=== PATIENT | female | born 1950 | race Caucasian/White ===

== ENCOUNTER 2021-01-16 10:25 | Day surgery (SDC) | payer MEDICARE, MEDICAID ==
[2021-01-09 16:15] LABS: BASOPHILS # (AUTO) 0.1 X10'3 (0-0.2); BASOPHILS % (AUTO) 0.7 % (0-1); EOSINOPHILS # (AUTO) 0.1 X10'3 (0-0.9); EOSINOPHILS % (AUTO) 1.4 % (0-6); LYMPHOCYTES # (AUTO) 2.1 X10'3 (1.1-4.8); LYMPHOCYTES % (AUTO) 21.3 % (21-51); MEAN CORPUSCULAR HEMOGLOBIN 29.7 PG (27.0-31.0); MEAN CORPUSCULAR HGB CONC 32.9 g/dL (33.0-36.5); MEAN CORPUSCULAR VOLUME 90.2 FL (78-98); MEAN PLATELET VOLUME 10.3 FL (7.4-10.4); MONOCYTES # (AUTO) 0.8 X10'3 (0-0.9); MONOCYTES % (AUTO) 8.7 % (2-12); NEUTROPHILS # (AUTO) 6.6 X10'3 (1.8-7.7); NEUTROPHILS % (AUTO) 67.9 % (42-75); PRE OP HEMATOCRIT 43.8 % (35.0-45.0); PRE OP HEMOGLOBIN 14.4 g/dL (12.0-16.0); PRE OP PLATELET COUNT 231 X10'3 (140-440); RED BLOOD COUNT 4.86 X10'6 (4.20-5.60); RED CELL DISTRIBUTION WIDTH 15.3 % (11.5-14.5)
[2021-01-09 16:21] LABS: ALBUMIN/GLOBULIN RATIO 1.2 (1.1-1.5); ALKALINE PHOSPHATASE 93 IU/L (46-116); BLOOD UREA NITROGEN 18 MG/DL (7-18); CALCIUM 8.6 MG/DL (8.5-10.1); CHLORIDE 106 MMOL/L (99-107); CREATININE 0.82 MG/DL (0.40-0.90); PRE OP ALT 19 U/L (30-65); PRE OP ANION GAP 10 (8-16); PRE OP AST 22 U/L (10-37); PRE OP BILIRUB, TOTAL 0.3 MG/DL (0.0-1.0); PRE OP GLUCOSE 86 MG/DL (70-104); PRE OP POTASSIUM 3.4 MMOL/L (3.4-5.1); PRE OP SODIUM 142 MMOL/L (135-145); TOTAL CARBON DIOXIDE 26.2 MMOL/L (24-32); TOTAL PROTEIN 7.4 G/DL (6.4-8.2); eGFR 69 ML/MIN
[~2021-01-16] VITALS: Ht 162.6 cm; Wt 67.1 kg
[~2021-01-16 10:25] MED LIST: BUPIVAcaine/PF 2.5 mg/ml (0.25%) 30ml vial ONE; OMEP-50 PO; albuterol 2.5 MG/3 ML nebule NEB ONE; cefazolin/dext.iso 2gm/100ml 100 ML IV ONE; famotidine 20mg tablet PO ONE; ringers solution, lacted 1,000 ML IV SCH
[2021-01-16] MEDS ORDERED: LIDOcaine 0.5% (5mg/ml) 50ml vial ONE ×2 (10:35→12:00)
[2021-01-16 10:40] VITALS: BP 140/64
[2021-01-16] MEDS ORDERED: acetaminophen 1,000mg/100ml IV 100 ML IV PRN (10:40)
[2021-01-16] MEDS ORDERED: meperidine/PF 25mg/ml syringe IV PRN ×3 (10:40)
[2021-01-16] MEDS ORDERED: morphine 2 MG/ML inj. syringe IV PRN (10:40)
[2021-01-16] MEDS ORDERED: hydrALAZINE 20mg/ml inj. IV PRN (10:40)
[2021-01-16] MEDS ORDERED: labetalol 20mg/4ml (5mg/ml) syringe IV PRN (10:40)
[2021-01-16] MEDS ORDERED: ondansetron/PF 4mg/2ml inj IV PRN (10:40)
[2021-01-16] MEDS ORDERED: proCHLORperazine 10 MG/2 ml inj IV PRN (10:40)
[2021-01-16] MEDS ORDERED: ringers solution, lacted 1,000 ML IV SCH (10:40)
[2021-01-16] MEDS ORDERED: morphine 4 MG/ML inj SYRINge IV PRN (10:40)
[2021-01-16] MEDS ORDERED: midazolam 1 mg/ML 2ml injection ONE (11:59)
[2021-01-16] MEDS ORDERED: fentaNYL/PF 50MCG/1 ML 2ML syringe ONE (11:59)
[2021-01-16] MEDS ORDERED: propofol inj 20 ML IV ONE (12:35)
[2021-01-16 12:40] VITALS: BP 130/71
--- NOTE | 2021-01-16 12:40 | NUR ---
Received from OR via , accompanied by Anesthesiologist DR MCCALL and report given by Anesthesiolgist. AWAKE AND STEPHANY PAIN. VITALS STABLE. DRESSING DI. FINGERS WARM AND PINK.
[2021-01-16 12:50] VITALS: BP 137/69
[2021-01-16 13:00] VITALS: BP 144/67
[2021-01-16 13:10] VITALS: BP 138/70
--- NOTE | 2021-01-16 13:30 | NUR ---
AWAKE AND ORIENTED. VITALS STABLE. DRESSING DI. STEPHANY PAIN. HOME WITH HER BROTHER AT THIS TIME.
== END 2021-01-16 13:30 | disposition home or self-care (01) ==
LOC: PAS 10:25
PROVIDERS: ATTEND Orthopaedic Surgery Hand Surgery
DX: G56.02 Carpal tunnel syndrome, left upper limb (principal); F17.210 Nicotine dependence, cigarettes, uncomplicated; K21.9 Gastro-esophageal reflux disease without esophagitis; M19.072 Primary osteoarthritis, left ankle and foot; M19.071 Primary osteoarthritis, right ankle and foot; Z79.899 Other long term (current) drug therapy; Z20.822 Contact with and (suspected) exposure to COVID-19; Z98.51 Tubal ligation status; Z96.642 Presence of left artificial hip joint; Z98.890 Other specified postprocedural states; Z98.41 Cataract extraction status, right eye; Z98.42 Cataract extraction status, left eye; Z95.1 Presence of aortocoronary bypass graft
CPT/HCPCS: 29848; 36415; 80053; 82948; 85025; 93005; J2001; J2250; J2704; J3010; J3490; U0003; A4215; A7000; J7120

== ENCOUNTER 2022-10-01 08:18 | Emergency (ER) | payer MEDICARE, MEDICAID ==
[~2022-10-01] VITALS: Ht 162.6 cm; Wt 70.9 kg
[~2022-10-01 08:18] MED LIST changes: -BUPIVAcaine/PF 2.5 mg/ml (0.25%) 30ml vial ONE; -OMEP-50 PO; +OMEP20CA16 PO; -albuterol 2.5 MG/3 ML nebule NEB ONE; -cefazolin/dext.iso 2gm/100ml 100 ML IV ONE; -famotidine 20mg tablet PO ONE; -ringers solution, lacted 1,000 ML IV SCH
[2022-10-01 08:29] VITALS: BP 163/53
[2022-10-01] MEDS ORDERED: ORPH100T2 PO (10:37)
== END 2022-10-01 10:51 | disposition home or self-care (01) ==
LOC: ER 08:18
DX: S29.019A Strain of muscle and tendon of unspecified wall of thorax, initial encounter (principal); M62.830 Muscle spasm of back; X58.XXXA Exposure to other specified factors, initial encounter; Y93.89 Activity, other specified; Y92.89 Other specified places as the place of occurrence of the external cause; Y99.8 Other external cause status
CPT/HCPCS: 99283

== ENCOUNTER 2024-07-06 10:31 | Inpatient (IN) | payer MEDICARE, MEDICAID ==
[~2024-07-06] VITALS: Ht 162.6 cm; Wt 71.8 kg
[2024-07-06] VITALS (7 sets, daily range): BP systolic 113–129; BP diastolic 62–66; PULSE 90–110; RESP 20–30; TEMP 97.6–97.8; O2SAT 94–97
[~2024-07-06 10:31] MED LIST changes: +ORPH100T4 PO
[2024-07-06] MEDS: magnesium sulf-water 2g/50mL 50 ML IV ONE (10:58)
[2024-07-06] MEDS: normal saline 1000ML IV soln IVB ONE ×3 (10:58→12:11)
[2024-07-06] MEDS: diltiazem 5mg/ml 5ml inj. IV ONE (10:58)
[2024-07-06 11:12] LABS: BASOPHILS # (AUTO) 0.1 X10'3 (0-0.2); BASOPHILS % (AUTO) 0.2 % (0-1); EOSINOPHILS # (AUTO) 0.1 X10'3 (0-0.9); EOSINOPHILS % (AUTO) 0.5 % (0-6); HEMATOCRIT 40.1 % (35.0-45.0); HEMOGLOBIN 13.1 g/dl (12.0-16.0); LYMPHOCYTES # (AUTO) 0.2 X10'3 (1.1-4.8); LYMPHOCYTES % (AUTO) 0.7 % (21-51); MEAN CORPUSCULAR HEMOGLOBIN 30.1 PG (27.0-31.0); MEAN CORPUSCULAR HGB CONC 32.7 g/dL (33.0-36.5); MEAN CORPUSCULAR VOLUME 91.9 FL (78-98); MEAN PLATELET VOLUME 10.4 FL (7.4-10.4); MONOCYTES # (AUTO) 0.2 X10'3 (0-0.9); MONOCYTES % (AUTO) 0.9 % (2-12); NEUTROPHILS # (AUTO) 24.8 X10'3 (1.8-7.7); NEUTROPHILS % (AUTO) 97.7 % (42-75); PLATELET COUNT 180 X10'3 (140-440); RED BLOOD COUNT 4.37 X10'6 (4.20-5.60); RED CELL DISTRIBUTION WIDTH 13.6 % (11.5-14.5)
[2024-07-06 11:14] LABS: WHITE BLOOD COUNT 25.4 X10'3 (4.5-11.0)
[2024-07-06 11:36] LABS: ALBUMIN 2.1 G/DL (3.4-5.0); ANION GAP 16 (8-16); CALCIUM 8.7 MG/DL (8.5-10.1); CHLORIDE 98 MMOL/L (99-107); CREATININE 1.52 MG/DL (0.40-0.90); GLUCOSE 107 MG/DL (70-104); MAGNESIUM 1.9 MG/DL (1.5-2.4); POTASSIUM 3.5 MMOL/L (3.5-5.1); PRO BRAIN NATRIURETIC PEPTIDE 6444 PG/ML (0-125); SODIUM 136 MMOL/L (135-145); TOTAL CARBON DIOXIDE 22.2 MMOL/L (24-32); eCRCL 29 ML/MIN; eGFR 34 ML/MIN
[2024-07-06 11:38] LABS: BLOOD UREA NITROGEN 38 MG/DL (7-18)
[2024-07-06 11:42] LABS: PLATELET ESTIMATE NORMAL; TOTAL CELLS COUNTED 100
[2024-07-06] MEDS: diltiazem-NS 100mg/100ml 100 ML IV SCH ×2 (12:10→13:40)
[2024-07-06] MEDS: CefTRIAXone 2gm/D5W 50ml BAG 50 ML IV ONE (12:50)
[2024-07-06] MEDS ORDERED: potassium Cl 20 mEq SR tablet PO PRN (13:00)
[2024-07-06] MEDS ORDERED: magnesium sulf-water 4G/100mL 100 ML IV PRN (13:00)
[2024-07-06] MEDS ORDERED: ondansetron/PF 4mg/2ml inj IV PRN (13:00)
[2024-07-06] MEDS ORDERED: magnesium sulf-water 2g/50mL 50 ML IV PRN (13:00)
[2024-07-06] MEDS ORDERED: HYDROcodone/acetaminophen 5mg/325mg tablet PO PRN (13:00)
[2024-07-06] MEDS ORDERED: magnesium Cl slow-release 64mg tablet PO PRN (13:00)
[2024-07-06] MEDS ORDERED: morphine 2 MG/ML inj. syringe IV PRN (13:00)
[2024-07-06] MEDS ORDERED: acetaminophen 325mg tablet PO PRN ×2 (13:00)
[2024-07-06] MEDS ORDERED: potassium Cl 40MEQ/1/2NS 520ml 520 ML IV PRN (13:00)
[2024-07-06] MEDS: azithromycin/NS 500mg/250ml 250 ML IV STA (13:39)
[2024-07-06] MEDS: normal saline 1000ml 1,000 ML IV SCH (13:41)
[2024-07-06 16:04] LABS: ABG BASE EXCESS -6.4 mmol/L (-2.0-3.0); ABG HCO3 17.2 mmol/L (21.0-28.0); ABG OXYGEN SATURATION 94.6 % (94.0-98.0); ABG PCO2 (T) 29.6 mmHg (32.0-45.0); ABG PO2 (T) 78.4 mmHg (83.0-108.0); ALLEN'S TEST POSITIVE; FCOHb 0.3 % (0.5-1.5); FHHb 5.4 % (0.0-5.0); FLOW 4 L/min; FMetHb 0.2 % (0.0-1.5); FO2Hb 94.1 % (94.0-98.0); MODE NASAL CANNULA; PATIENT TEMPERATURE 36.8; TOTAL HEMOGLOBIN 16.5 G/dl (12.0-16.0)
[2024-07-06] MEDS: COMMUNICATION ORDER 1 EA MISC MC ONE (17:29)
[2024-07-06] MEDS: methylPREDNISolone sod succ 125mg/2ml vial IV SCH (18:05)
[2024-07-06] MEDS: heparin, porcine 5000 units/ml vial SQ SCH (19:40)
[2024-07-06] MEDS: albuterol 2.5 MG/3 ML nebule NEB SCH (19:59)
[2024-07-07] VITALS (23 sets, daily range): BP systolic 113–145; BP diastolic 63–80; PULSE 84–116; RESP 15–30; TEMP 97.2–98.7; O2SAT 95–100
[2024-07-07] MEDS ORDERED: LISI5TAB22 PO (01:21)
[2024-07-07] MEDS ORDERED: ROSU5TAB43 PO (01:21)
[2024-07-07] MEDS ORDERED: UMEC1DIS INH (01:21)
[2024-07-07] MEDS ORDERED: FLEC50TA (01:21)
[2024-07-07] MEDS: azithromycin/NS 500mg/250ml 250 ML IV SCH (03:39)
[2024-07-07] MEDS: cefepime 1GM/NS ADD-VANTAGE 100 ML IV SCH (03:55)
[2024-07-07] MEDS: CefTRIAXone 2gm/D5W 50ml BAG 50 ML IV SCH (05:32)
[2024-07-07 07:49] LABS: BASOPHILS % (AUTO) 0.2 % (0-1); EOSINOPHILS # (AUTO) 0.1 X10'3 (0-0.9); EOSINOPHILS % (AUTO) 0.2 % (0-6); HEMATOCRIT 36.6 % (35.0-45.0); HEMOGLOBIN 11.8 g/dl (12.0-16.0); LYMPHOCYTES # (AUTO) 0.2 X10'3 (1.1-4.8); LYMPHOCYTES % (AUTO) 0.8 % (21-51); MEAN CORPUSCULAR HEMOGLOBIN 29.5 PG (27.0-31.0); MEAN CORPUSCULAR HGB CONC 32.2 g/dL (33.0-36.5); MEAN CORPUSCULAR VOLUME 91.6 FL (78-98); MEAN PLATELET VOLUME 10.4 FL (7.4-10.4); MONOCYTES # (AUTO) 0.4 X10'3 (0-0.9); MONOCYTES % (AUTO) 1.3 % (2-12); NEUTROPHILS # (AUTO) 28.1 X10'3 (1.8-7.7); NEUTROPHILS % (AUTO) 97.5 % (42-75); PLATELET COUNT 210 X10'3 (140-440); RED BLOOD COUNT 3.99 X10'6 (4.20-5.60); RED CELL DISTRIBUTION WIDTH 14.1 % (11.5-14.5)
[2024-07-07] MEDS: aspirin 81mg, enteric-coated 1 TAB TABLET.DR PO SCH (07:58)
[2024-07-07] MEDS: MULTIVIT-MIN/FERROUS GLUCONATE 9 MG/15 ML LIQUID PO SCH (07:59)
[2024-07-07 08:04] LABS: WHITE BLOOD COUNT 28.8 X10'3 (4.5-11.0)
[2024-07-07 08:10] LABS: ALANINE AMINOTRANSFERASE 29 U/L (12-78); ALBUMIN 1.8 G/DL (3.4-5.0); ALBUMIN/GLOBULIN RATIO 0.4 (1.1-1.5); ALKALINE PHOSPHATASE 217 IU/L (46-116); ANION GAP 13 (8-16); ASPARTATE AMINO TRANSFERASE 38 U/L (10-37); BILIRUBIN,TOTAL 2.4 MG/DL (0.1-1.0); BLOOD UREA NITROGEN 36 MG/DL (7-18); CALCIUM 8.2 MG/DL (8.5-10.1); CHLORIDE 104 MMOL/L (99-107); CREATININE 1.16 MG/DL (0.40-0.90); GLUCOSE 155 MG/DL (70-104); SODIUM 137 MMOL/L (135-145); TOTAL CARBON DIOXIDE 20.1 MMOL/L (24-32); TOTAL PROTEIN 6.5 G/DL (6.4-8.2); eCRCL 38 ML/MIN; eGFR 46 ML/MIN
[2024-07-07 08:23] LABS: POTASSIUM 2.8 MMOL/L (3.5-5.1)
[2024-07-07 08:39] LABS: PLATELET ESTIMATE NORMAL; TOTAL CELLS COUNTED 100; TOXIC GRANULATION 1+
[2024-07-07] MEDS: potassium Cl 20 mEq SR tablet PO PRN (08:42)
[2024-07-07] MEDS ORDERED: iohexol 300mg/ml 100ml inj. ONE (11:13)
[2024-07-08] VITALS (20 sets, daily range): BP systolic 121–153; BP diastolic 69–87; PULSE 82–101; RESP 16–27; TEMP 96.9–98.5; O2SAT 92–100
[2024-07-08] MEDS: cefepime 1GM/NS ADD-VANTAGE 100 ML IV SCH (02:45)
[2024-07-08 07:56] LABS: ALANINE AMINOTRANSFERASE 45 U/L (12-78); ALBUMIN 1.9 G/DL (3.4-5.0); ALBUMIN/GLOBULIN RATIO 0.4 (1.1-1.5); ALKALINE PHOSPHATASE 260 IU/L (46-116); ANION GAP 10 (8-16); ASPARTATE AMINO TRANSFERASE 47 U/L (10-37); BILIRUBIN,TOTAL 1.2 MG/DL (0.1-1.0); BLOOD UREA NITROGEN 39 MG/DL (7-18); BUN/CREATININE RATIO 35.8 (10.0-20.0); CALCIUM 8.6 MG/DL (8.5-10.1); CHLORIDE 108 MMOL/L (99-107); CREATININE 1.09 MG/DL (0.40-0.90); GLUCOSE 184 MG/DL (70-104); POTASSIUM 4.4 MMOL/L (3.5-5.1); SODIUM 138 MMOL/L (135-145); TOTAL PROTEIN 6.6 G/DL (6.4-8.2); eCRCL 41 ML/MIN; eGFR 49 ML/MIN
[2024-07-08 08:09] LABS: BASOPHILS % (AUTO) 0.1 % (0-1); EOSINOPHILS % (AUTO) 0 % (0-6); HEMOGLOBIN 11.4 g/dl (12.0-16.0); MONOCYTES # (AUTO) 0.7 X10'3 (0-0.9); RED CELL DISTRIBUTION WIDTH 14.4 % (11.5-14.5)
[2024-07-08 08:11] LABS: HEMATOCRIT 34.6 % (35.0-45.0); LYMPHOCYTES # (AUTO) 0.3 X10'3 (1.1-4.8); LYMPHOCYTES % (AUTO) 1.2 % (21-51); MEAN CORPUSCULAR HEMOGLOBIN 30.4 PG (27.0-31.0); MEAN CORPUSCULAR HGB CONC 33.1 g/dL (33.0-36.5); MEAN PLATELET VOLUME 10.5 FL (7.4-10.4); MONOCYTES % (AUTO) 2.4 % (2-12); NEUTROPHILS % (AUTO) 96.3 % (42-75); PLATELET COUNT 241 X10'3 (140-440); RED BLOOD COUNT 3.76 X10'6 (4.20-5.60)
[2024-07-08] MEDS: ROSUVASTATIN CALCIUM 5 MG TABLET PO SCH (08:39)
[2024-07-08] MEDS: pantoprazole 40mg Tablet.DR PO SCH (08:40)
[2024-07-08] MEDS: lisinopril 5mg tablet PO SCH (08:40)
[2024-07-08 09:10] LABS: TOTAL CELLS COUNTED 100
[2024-07-08 09:11] LABS: PLATELET ESTIMATE NORMAL
[2024-07-08] MEDS: diltiazem 30mg tablet PO SCH (11:47)
[2024-07-08] MEDS: mag hydrox/Alum hydrox/simeth 30ml oral suspension PO PRN (11:55)
[2024-07-09] VITALS (22 sets, daily range): BP systolic 139–156; BP diastolic 71–91; PULSE 85–107; RESP 12–28; TEMP 97.6–99.2; O2SAT 94–99
[2024-07-09 07:36] LABS: BASOPHILS % (AUTO) 0.1 % (0-1); EOSINOPHILS % (AUTO) 0.1 % (0-6); HEMATOCRIT 33.6 % (35.0-45.0); HEMOGLOBIN 10.9 g/dl (12.0-16.0); LYMPHOCYTES # (AUTO) 0.9 X10'3 (1.1-4.8); LYMPHOCYTES % (AUTO) 4.9 % (21-51); MEAN CORPUSCULAR HEMOGLOBIN 30.1 PG (27.0-31.0); MEAN CORPUSCULAR HGB CONC 32.5 g/dL (33.0-36.5); MEAN CORPUSCULAR VOLUME 92.7 FL (78-98); MEAN PLATELET VOLUME 9.7 FL (7.4-10.4); MONOCYTES # (AUTO) 1.2 X10'3 (0-0.9); MONOCYTES % (AUTO) 6.5 % (2-12); NEUTROPHILS # (AUTO) 15.7 X10'3 (1.8-7.7); NEUTROPHILS % (AUTO) 88.4 % (42-75); PLATELET COUNT 276 X10'3 (140-440); RED BLOOD COUNT 3.63 X10'6 (4.20-5.60); RED CELL DISTRIBUTION WIDTH 14.9 % (11.5-14.5); WHITE BLOOD COUNT 17.8 X10'3 (4.5-11.0)
[2024-07-09 08:07] LABS: ALANINE AMINOTRANSFERASE 58 U/L (12-78); ALBUMIN 1.7 G/DL (3.4-5.0); ALBUMIN/GLOBULIN RATIO 0.4 (1.1-1.5); ALKALINE PHOSPHATASE 193 IU/L (46-116); ANION GAP 8 (8-16); ASPARTATE AMINO TRANSFERASE 51 U/L (10-37); BILIRUBIN,TOTAL 0.7 MG/DL (0.1-1.0); BLOOD UREA NITROGEN 37 MG/DL (7-18); BUN/CREATININE RATIO 39.8 (10.0-20.0); CALCIUM 8.4 MG/DL (8.5-10.1); CHLORIDE 110 MMOL/L (99-107); CREATININE 0.93 MG/DL (0.40-0.90); GLUCOSE 112 MG/DL (70-104); POTASSIUM 4.4 MMOL/L (3.5-5.1); SODIUM 138 MMOL/L (135-145); TOTAL CARBON DIOXIDE 19.9 MMOL/L (24-32); eCRCL 48 ML/MIN; eGFR 59 ML/MIN
[2024-07-09] MEDS ORDERED: ASPI-1265 PO (09:03)
[2024-07-09] MEDS ORDERED: ALB0.5UD IH (09:05)
[2024-07-09 09:09] LABS: PLATELET ESTIMATE NORMAL; TOTAL CELLS COUNTED 100
[2024-07-09] MEDS: CefTRIAXone 2gm/D5W 50ml BAG 50 ML IV SCH (09:41)
[2024-07-10] VITALS (7 sets, daily range): BP systolic 129–140; BP diastolic 69–71; PULSE 68–105; RESP 14–27; TEMP 97.5–98.1; O2SAT 96–100
[2024-07-10 06:37] LABS: BASOPHILS % (AUTO) 0.2 % (0-1); EOSINOPHILS # (AUTO) 0.1 X10'3 (0-0.9); EOSINOPHILS % (AUTO) 0.6 % (0-6); HEMATOCRIT 35.2 % (35.0-45.0); HEMOGLOBIN 11.4 g/dl (12.0-16.0); LYMPHOCYTES # (AUTO) 0.8 X10'3 (1.1-4.8); LYMPHOCYTES % (AUTO) 5.3 % (21-51); MEAN CORPUSCULAR HEMOGLOBIN 29.9 PG (27.0-31.0); MEAN CORPUSCULAR HGB CONC 32.5 g/dL (33.0-36.5); MEAN CORPUSCULAR VOLUME 91.9 FL (78-98); MONOCYTES # (AUTO) 0.9 X10'3 (0-0.9); MONOCYTES % (AUTO) 5.5 % (2-12); NEUTROPHILS # (AUTO) 13.6 X10'3 (1.8-7.7); NEUTROPHILS % (AUTO) 88.4 % (42-75); PLATELET COUNT 287 X10'3 (140-440); RED BLOOD COUNT 3.82 X10'6 (4.20-5.60); RED CELL DISTRIBUTION WIDTH 14.3 % (11.5-14.5); WHITE BLOOD COUNT 15.4 X10'3 (4.5-11.0)
[2024-07-10 06:58] LABS: ALANINE AMINOTRANSFERASE 58 U/L (12-78); ALBUMIN 1.7 G/DL (3.4-5.0); ALBUMIN/GLOBULIN RATIO 0.4 (1.1-1.5); ALKALINE PHOSPHATASE 168 IU/L (46-116); ANION GAP 9 (8-16); ASPARTATE AMINO TRANSFERASE 39 U/L (10-37); BILIRUBIN,TOTAL 0.8 MG/DL (0.1-1.0); BLOOD UREA NITROGEN 28 MG/DL (7-18); BUN/CREATININE RATIO 35.4 (10.0-20.0); CALCIUM 8.4 MG/DL (8.5-10.1); CHLORIDE 108 MMOL/L (99-107); CREATININE 0.79 MG/DL (0.40-0.90); GLUCOSE 92 MG/DL (70-104); POTASSIUM 4.2 MMOL/L (3.5-5.1); SODIUM 140 MMOL/L (135-145); TOTAL CARBON DIOXIDE 23.4 MMOL/L (24-32); TOTAL PROTEIN 5.7 G/DL (6.4-8.2); eCRCL 56 ML/MIN; eGFR 72 ML/MIN
[2024-07-10 08:52] LABS: TOTAL CELLS COUNTED 100
[2024-07-10 08:53] LABS: PLATELET ESTIMATE NORMAL
[2024-07-10] MEDS ORDERED: LEVO-65 PO (11:33)
[2024-07-10] MEDS ORDERED: DILT30TA2 PO (11:33)
[2024-07-10] MEDS ORDERED: ALBU2.5V7 NEB (11:39)
== END 2024-07-10 14:12 | disposition home health service (06) | DRG 871 ==
LOC: ER 10:31 → ED HOLD 13:07 → EDBEDREQ 17:30 → PCU 3S 18:30
PROVIDERS: ADMIT Internal Medicine; ATTEND Internal Medicine
DX: A40.3 Sepsis due to Streptococcus pneumoniae (principal); J18.9 Pneumonia, unspecified organism; J44.0 Chronic obstructive pulmonary disease with (acute) lower respiratory infection; G47.00 Insomnia, unspecified; I25.10 Atherosclerotic heart disease of native coronary artery without angina pectoris; I48.91 Unspecified atrial fibrillation; F10.90 Alcohol use, unspecified, uncomplicated; N18.30 Chronic kidney disease, stage 3 unspecified; Z96.642 Presence of left artificial hip joint; K21.9 Gastro-esophageal reflux disease without esophagitis; Z95.1 Presence of aortocoronary bypass graft; Z79.899 Other long term (current) drug therapy
CPT/HCPCS: 36415; 36600; 71045; 71260; 74177; 80048; 80053; 82803; 83605; 83735; 83880; 84145; 84484; 85007; 85018; 85025; 85651; 87040; 87077; 87081; 87186; 93005; 93306; 94640; 94760; 97110; 97116; 97162; 97530; 99285; A6449; G0378; J0456; J0692; J0696; J1644; J2919; J3490; J7030; Q9967